=== PATIENT | female | born 1950 | race Caucasian/White ===

== ENCOUNTER 2021-04-28 12:58 | Outpatient (CLI) | payer MEDICARE, SELFPAY ==
--- NOTE | ~2021-04-28 | US_ITS ---
EXAMINATION:US venous doppler LE RT INDICATION:Right leg pain TECHNIQUE: Multiple grayscale, color flow and Doppler images of the ] lower extremity deep venous sys tems were obtained and reviewed. COMPARISON:No prior studies for comparison. FINDINGS: The common femoral, superficial femoral and popliteal veins demonstrate normal respiratory variation, augmentation and compressibility. Color flow is also seen within the posterior tibial, pe roneal, greater saphenous and profunda veins. There is a hypoechoic structure in the proximal medial soft tissues of the knee extending into the calf measuring 3.4 x 1.9 x 0.8 cm, possibly a complicated Benitez's cyst or hematoma. IMPRESSION: 1: No lower extremity deep venous thrombosis. Reviewed, dictated and finalized at location A.
== END 2021-04-28 12:59 | disposition home or self-care (01) ==
PROVIDERS: PCP Internal Medicine; Visit Provider Nurse Practitioner
DX: M79.661 Pain in right lower leg (principal)
CPT/HCPCS: 93971

== ENCOUNTER 2022-03-24 07:02 | Outpatient (CLI) | payer MEDICARE, SELFPAY ==
[2022-03-24 09:00] LABS: Toxigenic C. Diff NEGATIVE (NEGATIVE)
[2022-03-31 20:27] LABS: Calprotectin, Stool 7 mcg/g
== END 2022-03-24 07:03 | disposition home or self-care (01) ==
LOC: ANHLAB 07:06
PROVIDERS: PCP Internal Medicine; Visit Provider Nurse Practitioner Family
DX: R19.7 Diarrhea, unspecified (principal)
CPT/HCPCS: 83993; 87493

== ENCOUNTER 2022-04-11 00:10 | Day surgery (SDC) | payer MEDICARE, SELFPAY ==
[2022-01-19 13:13] VITALS: BMI 20.7
[2022-03-27 08:36] VITALS: BMI 19.6
--- NOTE | 2022-04-10 13:10 | WPDANESEPPF ---
Anes - Initial Pre Proc Eval Procedure: Operation Date: 04/11/22 08:00 Proposed Procedures p Esophagogastroduodenoscopy & Screening Colonoscopy - Chetan Ferrer MD Date/Time: 04/10/22 13:10 Surgeon: Chetan Ferrer MD Pre Op Diagnosis: neoplasm screening, nausea Patient Data Age: 71 Gender: F Height: 1.7 m Weight: 57 kg Allergies Allergy/AdvReac Type Severity Reaction Status Date / Time naproxen [From Aleve] AdvReac Severe Hives, Verified 04/11/22 06:54 anaphlaxis Home Medications Medication Instructions Recorded Confirmed Type albuterol sulfate 90 mcg/actuation 2 inh inhalation Q4H PRN shortness 10/12/20 03/27/22 Rx aerosol inhaler of breath or wheezing #18 grams hyoscyamine sulfate 0.375 mg 0.375 mg PO Q12H PRN cramping 3 12/19/21 03/27/22 Rx tablet,extended release,12 hr months #180 tabs meloxicam 15 mg tablet 15 mg PO DAILY PRN Pain 02/22/22 03/27/22 History estradiol 0.01% (0.1 mg/gram) 1 applic vaginal DAILY 03/27/22 03/27/22 History vaginal cream Patient hx anesthesia problems: none Family hx anesthesia problems: none Results Review: All pre-operative results and documents have been reviewed as part of the pre-operative evaluation. [facility] Past Medical History Medical History Allergies Anxiety Arthritis Asthma Chronic allergic rhinitis due to pollen Family history of colon cancer History of basal cell cancer Irritable bowel disease Irritable bowel syndrome with constipation Nausea Pelvic floor dysfunction Vitamin D deficiency Vitamin D deficiency Vitamin D deficiency Surgical History Surgical History H/O breast implant H/O knee surgery History of surgery on wrist History of tubal ligation Family History Family History Sibling Carcinoma of colon Father Family history of pancreatic cancer Social History Social History Social History: 3 cups of caffeine daily Smoking packs per day: 0.5 Smoking cigarettes per day: 10.0 Years smoked: 6 Smoking pack-years: 3.00 Smoking status: Former smoker Tobacco type: cigarettes Second hand tobacco smoke exposure: No Smoking end date: 10/01/80 Alcohol intake: never Alcohol use details: rarely Substance use: never Substance use type: does not use Living arrangements: alone Spiritual care concerns: No Anes - Eval Final PreProcedure Day of Procedure 04/10/22 13:10 Patient weight: normal Heart: regular rate and rhythm Lungs: clear to auscultation and normal air movement Airway: Mallampati scale class II Neurological: alert and oriented Last oral intake: >/= 8 hours ASA classification: II Emergent: no Anesthetic plan: proceed Anesthesia type and monitoring: general GIVS Results Review: All pre-operative results and documents have been reviewed as part of the pre-operative evaluation. Informed Consent: The patient's anesthetic plan and its attendant risks and benefits were discussed with the patient/family/POA. Questions were solicited and answers provided to the satisfaction of the patient/family/POA.
[2022-04-11 06:57] VITALS: BP 135/85; PULSE 78; RESP 18; TEMP 35.9; O2SAT 100; BMI 19.9
[2022-04-11] MEDS: LACTATED RINGERS 1,000 ML 150 ML IV CONT (07:14)
--- NOTE | 2022-04-11 07:49 | WPDHPUPDATE1 ---
History and Physical Update Update Date/Time: 04/11/22 07:49 History and Physical has been reviewed, including an updated exam of the patient. There are NO changes in the patient's condition. Risks, benefits, and alternatives have been discussed and questions answered. Patient agrees to proceed with procedure.
--- NOTE | 2022-04-11 08:12 | SUR.OPER ---
EGD: Colonoscopy began at 810
[2022-04-11 08:32] VITALS: BP 92/46; PULSE 67; RESP 18; O2SAT 100
[2022-04-11 08:42] VITALS: BP 94/56; PULSE 68; RESP 19; O2SAT 100
[2022-04-11 08:52] VITALS: BP 101/56; PULSE 67; RESP 20; O2SAT 100
--- NOTE | 2022-04-11 09:25 | SUR.PHASEII ---
pt awaiting for transit bus driver.
== END 2022-04-11 09:30 | disposition home or self-care (01) ==
PROVIDERS: PCP Internal Medicine; Visit Provider Internal Medicine Gastroenterology
PROC: 0DJ08ZZ Inspection of Upper Intestinal Tract, Via Natural or Artificial Opening Endoscopic (ICD-10-PCS; CPT 43235; principal; 2022-04-11 08:00)
DX: K58.0 Irritable bowel syndrome with diarrhea (principal); K64.8 Other hemorrhoids; R11.0 Nausea; Z80.0 Family history of malignant neoplasm of digestive organs; E55.9 Vitamin D deficiency, unspecified; J45.909 Unspecified asthma, uncomplicated; Z79.51 Long term (current) use of inhaled steroids; Z87.891 Personal history of nicotine dependence
CPT/HCPCS: 45380; 43239; 88305; J2704; J7120

== ENCOUNTER 2022-11-06 15:39 | Outpatient (CLI) | payer MEDICARE, SELFPAY ==
[2022-11-06 20:25] LABS: Appearance Urine Slightly Cloudy (Clear); Bilirubin Urine Negative (Negative); Blood Urine Negative (Negative); Color Urine Yellow (Yellow); Glucose Urine UA Negative (Negative); Ketones Urine Negative (Negative); Leukocyte Esterase Ur Negative LEU/UL (NEGATIVE); Nitrate Urine Negative (Negative); Protein Urine Negative (Negative); Urobilinogen Urine 0.2 mg/dL (<2.0)
[2022-11-06 21:01] LABS: Amorphous Sediment Urine Few; Bacteria Urine Trace /hpf; Mucus Urine Rare /lpf; RBC Urine 0-2 /hpf (0-2); Squamous Epithelial Cell Urine Few /hpf (Few)
[2022-11-06 21:06] LABS: Add Urine Microscopic? YES
[2022-11-06 21:40] LABS: Basophils Absolute Auto 0.1 K/mm3 (0.0-0.1); Basophils Percent Auto 0.8 % (0.2-1.2); Eosinophils Absolute Auto 0.2 K/mm3 (0-0.3); Eosinophils Percent Auto 2.7 % (0-4.4); Hematocrit 40.8 % (37.0-47.0); Hemoglobin 13.4 g/dL (12.0-15.0); Immature Granulocyte Absolute 0.03 K/mm3 (0.00-0.031); Immature Granulocyte Percent A 0.4 % (0-0.5); Lymphocytes Absolute Auto 2.28 K/mm3 (0.9-3.2); Lymphocytes Percent Auto 30.9 % (18.3-44.2); Mean Corpuscular HGB Conc 32.8 g/dl (32-36); Mean Corpuscular Hemoglobin 30.7 pg (26-34); Mean Corpuscular Volume 93.4 fl (80-100); Mean Platelet Volume 10.9 fl (7.4-10.4); Monocytes Absolute Auto 0.7 K/mm3 (0.1-0.6); Monocytes Percent Auto 8.9 % (2.6-8.5); Neutrophils Absolute Auto 4.2 K/mm3 (1.3-6.7); Neutrophils Percent Auto 56.3 % (45.5-73.1); Platelet Count Result 234 k/mm3 (150-375); Red Blood Count 4.37 M/mm3 (4.2-5.4); Red Cell Distribution Width 13.1 % (11.5-14.5); White Blood Count 7.4 K/mm3 (4.5-10.0)
[2022-11-06 21:45] LABS: Alanine Aminotransferase 25 U/L (6-35); Albumin Level 4.2 g/dL (3.5-5.1); Alkaline Phosphatase 74 U/L (38-126); Anion Gap 5 mmol/L (8-16); Aspartate Amino Transferase 39 U/L (14-36); Bilirubin,Total 0.3 mg/dL (0.2-1.3); Blood Urea Nitrogen 15 mg/dL (7-17); CRP < 0.5 mg/dL (<1.0); Calcium 9.1 mg/dL (8.4-10.2); Carbon Dioxide 32 mmol/L (22-30); Chloride 100 mmol/L (98-107); Estimated Glomerular Filt Rate > 60; Glucose 87 mg/dL (65-110); Potassium 4.5 mmol/L (3.4-5.0); Sodium 137 mmol/L (137-145)
[2022-11-06 22:04] LABS: Erythrocyte Sedimentation Rate 11 mm/hr (0-20)
[2022-11-06 22:12] LABS: Thyroid Stimulating Hormone 0.275 uIU/mL (0.465-4.680)
[2022-11-07 17:51] LABS: Folic Acid 13.7 ng/mL (2.76->20)
[2022-11-09 18:50] LABS: Gliadin AB, IgG <1.0 U/mL (<15.0); TTG IGA AB <1.0 U/mL (<15.0)
== END 2022-11-06 15:40 | disposition home or self-care (01) ==
LOC: ANHGOSHLAB 15:41
PROVIDERS: PCP Internal Medicine; Visit Provider Internal Medicine
DX: R11.0 Nausea (principal); R19.7 Diarrhea, unspecified; R53.83 Other fatigue
CPT/HCPCS: 36415; 80053; 81001; 82607; 82746; 83516; 84443; 85025; 85652; 86140; 86255

== ENCOUNTER 2022-11-08 11:50 | Outpatient (CLI) | payer MEDICARE, SELFPAY ==
[2022-11-08 20:33] LABS: Free T4 Free Thyroxine 1.15 ng/mL (0.78-2.19)
== END 2022-11-08 11:51 | disposition home or self-care (01) ==
LOC: ANHGOSHLAB 11:52
PROVIDERS: PCP Internal Medicine; Visit Provider Internal Medicine
DX: E05.90 Thyrotoxicosis, unspecified without thyrotoxic crisis or storm (principal)
CPT/HCPCS: 36415; 84439

== ENCOUNTER 2022-11-16 14:25 | Outpatient (CLI) | payer MEDICARE, SELFPAY ==
[2022-11-16 20:16] LABS: Free T4 Free Thyroxine 1.07 ng/mL (0.78-2.19)
[2022-11-16 20:24] LABS: Thyroid Stimulating Hormone 0.198 uIU/mL (0.465-4.680)
[2022-11-19 04:02] LABS: Thyroid Peroxidase Antibodies <1 IU/mL (<9)
== END 2022-11-16 14:26 | disposition home or self-care (01) ==
LOC: ANHGOSHLAB 14:27
PROVIDERS: PCP Internal Medicine; Visit Provider Clinical Nurse Specialist
DX: E07.9 Disorder of thyroid, unspecified (principal)
CPT/HCPCS: 36415; 84439; 84443; 86376

== ENCOUNTER 2023-05-18 11:15 | Outpatient (CLI) | payer MEDICARE, SELFPAY ==
--- NOTE | ~2023-05-18 | XR_ITS ---
EXAMINATION: XR hip RT min 2V DATE: 05/18/2023 11:29 INDICATION: Right hip pain. TECHNIQUE: 2 views of right hip were obtained. COMPARISON: None. FINDINGS: There is lumbar dextrocurvature and severe spondylosis. No fracture. There is an 18 mm scle rotic lesion in right ilium. There is mild right hip osteoarthritis. There are right perihip dystroph ic calcifications. IMPRESSION: 1. 18 mm sclerotic lesion in right ilium, which may be a benign bone island or metastatic disease. Co nsider pelvis CT without contrast. Reviewed, dictated and finalized at location A. IMPRESSION: 1. 18 mm sclerotic lesion in right ilium, which may be a benign bone island or metastatic disease. Consider pelvis CT without contrast.
--- NOTE | ~2023-05-18 | XR_ITS ---
EXAMINATION: XR knee RT min 4V DATE: 05/18/2023 11:29 INDICATION: Right knee pain. TECHNIQUE: 4 views of right knee including standing views were obtained. COMPARISON: None. FINDINGS: Bone alignment is normal. No fracture. There is moderate osteoarthritis of lateral compartm ent and mild osteoarthritis of medial and patellofemoral compartments. There is chondrocalcinosis of the menisci. No knee joint effusion. IMPRESSION: 1. Moderate right knee osteoarthritis. Reviewed, dictated and finalized at location A.
== END 2023-05-18 11:16 ==
PROVIDERS: PCP Clinical Nurse Specialist; Visit Provider Clinical Nurse Specialist
DX: M25.551 Pain in right hip (principal); M17.11 Unilateral primary osteoarthritis, right knee
CPT/HCPCS: 73502; 73564

== ENCOUNTER → 2023-05-22 12:23 | Outpatient (CLI) | payer MEDICARE, SELFPAY ==
--- NOTE | ~2023-05-22 | CT_ITS ---
EXAMINATION: CT pelvis wo con DATE: 05/22/2023 12:41 INDICATION: Right hip pain. Sclerotic lesion in right ilium. TECHNIQUE: Computed tomography (CT) of the pelvis was performed without intravenous contrast. Automat ed exposure control and iterative reconstruction technique were employed. The dose-length product was 330.92 mGy-cm. COMPARISON: Right hip radiographs 05/18/2023 FINDINGS: There are no dilated loops of bowel. There are no pathologically enlarged lymph nodes. Ther e is no free intraperitoneal fluid. Bone alignment is normal. There is severe lumbar spondylosis. The re is a benign bone island in right ilium with attenuation of 1293 HU. There is moderate osteoarthrit is of the hips. There are dystrophic calcifications of the hip joint capsules and roya. Osteitis pub is is noted. IMPRESSION: 1. Benign bone island in right ilium correlating with the radiographic abnormality. 2. Moderate osteoarthritis of the hips. Reviewed, dictated and finalized at location A. IMPRESSION: 1. Benign bone island in right ilium correlating with the radiographic abnormal ity. 2. Moderate osteoarthritis of the hips.
== END ==
PROVIDERS: PCP Internal Medicine; Visit Provider Clinical Nurse Specialist
DX: R93.89 Abnormal findings on diagnostic imaging of other specified body structures (principal); M16.0 Bilateral primary osteoarthritis of hip
CPT/HCPCS: 72192

== ENCOUNTER → 2023-07-25 13:22 | Outpatient (CLI) | payer MEDICARE, SELFPAY ==
--- NOTE | ~2023-07-25 | MR_ITS ---
MRI of the right hip Clinical history: Pain Technique: Coronal T1-weighted, T2-weighted, and proton-density fat-sat images, and axial T1-weighted and proton-density fat-sat images were acquired through the pelvis. Coronal T2-weighted images and c oronal, axial, and sagittal proton-density fat-sat images were acquired through the right hip. Findings: There is no fracture, avascular necrosis, or transient suppresses of either hip. Bone marro w signals in the proximal femora and visualized pelvic bones are unremarkable. There is mild degenera tive change of both hip joints, mild chondromalacia and minimal femoral head neck junction osteophyte formation. Probable degenerative attenuation of the superior to anterior right acetabular labrum wit hout definite, detached labral tear. Visualized musculature about the pelvis and right hip is unremarkable. No muscle atrophy or edema. Pr obable mild to moderate tendinosis of the distal right gluteus medius tendon near the greater trochan ter. No bursitis. No mass lesion or fluid collection evident. IMPRESSION: Mild degenerative change of both hip joints. Moderate tendinosis of the distal right gluteus medius tendon. Probable degenerative attenuation of the right acetabular labrum, as detailed above, without definite discrete, detached labral tear. Reviewed, dictated and finalized at location M. IMPRESSION: Mild degenerative change of both hip joints. Moderate tendinosis of the distal right gluteus medius tendon. Probable degenerative attenuation of the right acetabular labrum, as detailed a cristian, without definite discrete, detached labral tear.
== END ==
PROVIDERS: PCP Internal Medicine
DX: M25.551 Pain in right hip (principal)
CPT/HCPCS: 73721

== ENCOUNTER 2023-08-14 15:15 | Outpatient (CLI) | payer MEDICARE, SELFPAY ==
[2023-08-14 19:10] LABS: Free T4 Free Thyroxine 1.28 ng/mL (0.78-2.19)
[2023-08-14 19:19] LABS: Vitamin D 25 Hydroxy 34.4 ng/mL
== END 2023-08-14 15:16 | disposition home or self-care (01) ==
PROVIDERS: Clinical Nurse Specialist; PCP Internal Medicine; Visit Provider Nurse Practitioner
DX: E55.9 Vitamin D deficiency, unspecified (principal); E05.90 Thyrotoxicosis, unspecified without thyrotoxic crisis or storm; L65.9 Nonscarring hair loss, unspecified; R53.83 Other fatigue
CPT/HCPCS: 36415; 82306; 82607; 84439; 84443

== ENCOUNTER 2024-01-17 08:26 | Outpatient (CLI) | payer MEDICARE, SELFPAY ==
[2024-01-17 13:44] LABS: Basophils Absolute Auto 0.1 K/mm3 (0.0-0.1); Basophils Percent Auto 1.1 % (0.2-1.2); Eosinophils Absolute Auto 0.1 K/mm3 (0-0.3); Hematocrit 38.7 % (37.0-47.0); Hemoglobin 12.4 g/dL (12.0-15.0); Immature Granulocyte Absolute 0.01 K/mm3 (0.00-0.031); Immature Granulocyte Percent A 0.2 % (0-0.5); Lymphocytes Absolute Auto 1.47 K/mm3 (0.9-3.2); Lymphocytes Percent Auto 31.7 % (18.3-44.2); Mean Corpuscular Hemoglobin 29.6 pg (26-34); Mean Corpuscular Volume 92.4 fl (80-100); Mean Platelet Volume 11.1 fl (7.4-10.4); Monocytes Absolute Auto 0.5 K/mm3 (0.1-0.6); Monocytes Percent Auto 10.8 % (2.6-8.5); Neutrophils Absolute Auto 2.5 K/mm3 (1.3-6.7); Neutrophils Percent Auto 53.2 % (45.5-73.1); Platelet Count Result 217 k/mm3 (150-375); Red Blood Count 4.19 M/mm3 (4.2-5.4); Red Cell Distribution Width 13.1 % (11.5-14.5); White Blood Count 4.6 K/mm3 (4.5-10.0)
[2024-01-17 14:09] LABS: Alanine Aminotransferase 17 U/L (6-35); Albumin Level 4.1 g/dL (3.5-5.1); Alkaline Phosphatase 54 U/L (38-126); Anion Gap 3 mmol/L (4-12); Aspartate Amino Transferase 40 U/L (14-36); Bilirubin,Total 0.8 mg/dL (0.2-1.3); Blood Urea Nitrogen 19 mg/dL (7-17); Calcium 9.3 mg/dL (8.4-10.2); Carbon Dioxide 30 mmol/L (22-30); Chloride 105 mmol/L (98-107); Cholesterol 186 mg/dL (0-200); Estimated Glomerular Filt Rate > 60; Glucose 87 mg/dL (65-110); HDL Direct 57 mg/dL; Potassium 3.8 mmol/L (3.4-5.0); Sodium 138 mmol/L (137-145); Triglycerides 87 mg/dL (<150)
[2024-01-17 14:20] LABS: LDL Cholesterol Direct 111 mg/dL
[2024-01-17 14:41] LABS: Vitamin D 25 Hydroxy 21.6 ng/mL
== END 2024-01-17 08:27 | disposition home or self-care (01) ==
LOC: ANHGOSHLAB 08:27
PROVIDERS: PCP Nurse Practitioner; Visit Provider Nurse Practitioner
DX: E55.9 Vitamin D deficiency, unspecified (principal); E05.90 Thyrotoxicosis, unspecified without thyrotoxic crisis or storm; Z13.29 Encounter for screening for other suspected endocrine disorder; Z13.220 Encounter for screening for lipoid disorders
CPT/HCPCS: 36415; 80053; 80061; 82306; 84443; 85025

== ENCOUNTER 2024-01-22 15:16 | Outpatient (CLI) | payer MEDICARE, SELFPAY ==
--- NOTE | ~2024-01-22 | XR_ITS ---
XR chest 2V 01/22/2024 15:32 Indication: Cough Procedure: 2 view chest Comparison: No prior studies for comparison. Findings: There is levoscoliosis. Borderline heart size. No focal air space disease, pulmonary edema, pleural effusion or suspected pneumothorax. Impression: 1: No acute cardiopulmonary disease. Reviewed, dictated and finalized at location B. Impression: 1: No acute cardiopulmonary disease.
== END 2024-01-22 15:17 ==
PROVIDERS: PCP Nurse Practitioner; Visit Provider Nurse Practitioner
DX: R05.9 Cough, unspecified (principal)
CPT/HCPCS: 71046

== ENCOUNTER 2024-03-10 15:17 | Outpatient (CLI) | payer MEDICARE, SELFPAY ==
[2024-03-10 20:01] LABS: Appearance Urine Cloudy (Clear); Bacteria Urine 1+ /hpf; Bilirubin Urine Negative (Negative); Blood Urine Negative (Negative); Color Urine Yellow (Yellow); Glucose Urine UA Negative (Negative); Ketones Urine Negative (Negative); Leukocyte Esterase Ur Negative LEU/UL (Negative); Need Manual Microscopic Reviewed; Nitrate Urine Negative (Negative); Non Pathogenic Casts 0-2; Protein Urine Negative (Negative); Specific Grav Ur 1.018 (1.001-1.035); Squamous Epithelial Cell Urine None Seen /hpf (Few); Urobilinogen Urine 0.2 mg/dL (<2.0); WBC Urine 0-5 /hpf (0-3); pH Urine 5.5 (5.0-9.0)
[2024-03-10 20:03] LABS: Add Urine Microscopic? YES
== END 2024-03-10 15:18 | disposition home or self-care (01) ==
LOC: ANHGOSHLAB 15:18
PROVIDERS: PCP Nurse Practitioner; Visit Provider Clinical Nurse Specialist
DX: R35.0 Frequency of micturition (principal)
CPT/HCPCS: 81001

== ENCOUNTER 2024-03-11 12:20 | Outpatient (CLI) | payer MEDICARE, SELFPAY ==
--- NOTE | ~2024-03-11 | CT_ITS ---
CT abdomen pelvis wo con Ordering provider: DAVID Martinez History: . M54.9 - Dorsalgia, unspecified . Comparison: May 22, 2023 Technique: CT abdomen without IV and without oral contrast. Radiation reduction technique utilized. Findings: VISUALIZED LOWER CHEST: Mild to moderate pericardial effusion. Slight cardiomegaly. Minimal dependent atelectatic changes. UPPER ABDOMINAL ORGANS: Liver: Hypodensity in the segment 2 and 3 with the largest in segment #3 is1.5 cm. Hepatomegaly. Gallbladder: Normal. Spleen: Normal. Stomach/duodenum: Slightly thickened wall of the stomach may be due to underfilling. Clinical correla tion advised. Pancreas: Normal. Adrenals: Normal. Kidneys: Tiny stone in the right kidney upper pole. Urinary Bladder: Normal. Uterus: Normal. VISUALIZED BOWEL AND MESENTERY: Diverticulosis with no evidence of diverticulitis. Fecal material is seen filling the colon suggestive of constipation. No evidence of appendicitis seen. The bowel is oth erwise normal. No free air or free fluid. No mesenteric lymphadenopathy. RETROPERITONEUM: Mild atheromatous disease of the abdominal aorta. No retroperitoneal lymphadenopathy . MUSCULOSKELETAL: The superficial soft tissues are normal. Age appropriate degenerative changes of the spine. Sclerotic area in the medial aspect of the right iliac bone. Follow-up advised. Multilevel fa cet joint disease. Minimal anterolisthesis at the level of L4-L5. IMPRESSION: [id number] pericardial effusion Hypodensities in the right and left lobe of the liver most likely cysts. Hepatomegaly. Tiny calcification in the right kidney upper pole which may be a stone. Sclerotic lesion in the right iliac bone. Follow-up and further evaluation advised. Reviewed, dictated and finalized at location A. IMPRESSION: [id number] pericardial effusion Hypodensities in the right and left lobe of the liver most likely cysts. Hepato megaly. Tiny calcification in the right kidney upper pole which may be a stone. Sclerotic lesion in the right iliac bone. Follow-up and further evaluation advi sed.
== END 2024-03-11 12:21 | disposition home or self-care (01) ==
PROVIDERS: PCP Nurse Practitioner; Visit Provider Clinical Nurse Specialist
DX: R31.29 Other microscopic hematuria (principal); M54.9 Dorsalgia, unspecified; R10.2 Pelvic and perineal pain; I31.39 Other pericardial effusion (noninflammatory); R16.0 Hepatomegaly, not elsewhere classified
CPT/HCPCS: 74176

== ENCOUNTER 2024-03-20 11:20 | Outpatient (CLI) | payer MEDICARE, SELFPAY ==
[2024-03-20 15:50] LABS: CRP < 0.5 mg/dL (<1.0)
[2024-03-20 15:55] LABS: Erythrocyte Sedimentation Rate 14 mm/hr (0-20)
[2024-03-20 18:56] LABS: Rheumatoid Factor < 12.0 IU/ML (<12)
[2024-03-21 14:19] LABS: ANA Cascade Screen NEGATIVE (NEGATIVE)
== END 2024-03-20 11:21 | disposition home or self-care (01) ==
LOC: ANHGOSHLAB 11:21
PROVIDERS: PCP Nurse Practitioner; Visit Provider Clinical Nurse Specialist
DX: I31.39 Other pericardial effusion (noninflammatory) (principal); F41.9 Anxiety disorder, unspecified
CPT/HCPCS: 36415; 84443; 85652; 86038; 86140; 86225; 86235; 86364; 86430

== ENCOUNTER 2024-04-11 10:53 | Outpatient (CLI) | payer MEDICARE, SELFPAY ==
[2024-04-11 15:03] LABS: Free T4 Free Thyroxine 1.11 ng/mL (0.78-2.19)
== END 2024-04-11 10:54 | disposition home or self-care (01) ==
LOC: ANHGOSHLAB 10:54
PROVIDERS: PCP Internal Medicine; Visit Provider Internal Medicine
DX: I31.39 Other pericardial effusion (noninflammatory) (principal)
CPT/HCPCS: 36415; 84439; 84443